=== PATIENT | female | born 1985 | race Caucasian/White ===

== ENCOUNTER → 2023-01-29 14:47 | Outpatient (CLI) | payer OTHER, SELFPAY ==
--- NOTE | 2023-01-29 14:49 | DI.RAD.S_ITS ---
PROCEDURE: XR SHOULDER RT MIN 2V INDICATIONS: Right shoulder pain TECHNIQUE: 3 views of the shoulder were acquired. COMPARISON: None. FINDINGS: Bones: No fractures or dislocations. No suspicious bony lesions. Visualized ribs appear intact. Soft tissues: No suspicious soft tissue calcifications. IMPRESSION: Normal for age, source of current shoulder pain symptoms is not seen. Dictated by: Rico Choi M.D. on 01/29/2023 at 15:19 Approved by: Rico Choi M.D. on 01/29/2023 at 15:19
== END ==
PROVIDERS: PCP Family Medicine; Referring Provider Registered Nurse; Visit Provider Registered Nurse
DX: M25.511 Pain in right shoulder (principal)
CPT/HCPCS: 73030